=== PATIENT | female | born 1970 | race Caucasian/White ===

== ENCOUNTER 2021-12-11 15:34 | Outpatient (REF) | payer BC, SELFPAY | END 2021-12-11 15:35 | disposition home or self-care (01) | LOC: HO.BBR 15:34 | PROVIDERS: Visit Provider Internal Medicine Hematology | DX: Z13.89 Encounter for screening for other disorder (principal) ==

== ENCOUNTER 2024-01-29 15:14 | Outpatient (REF) | payer BC, SELFPAY | END 2024-01-29 15:15 | disposition home or self-care (01) | LOC: HO.BBR 15:14 | PROVIDERS: Visit Provider Internal Medicine Hematology | DX: Z13.89 Encounter for screening for other disorder (principal) ==

== ENCOUNTER 2025-05-27 15:03 | Outpatient (REF) | payer BC, SELFPAY ==
--- OUTSIDE RECORDS SUMMARY | 2025-05-27 20:26 | XMS_ITS | Clinical Summary ---
Author Organization [facility] Address [address] [facility] [address] [place] [address] Phone Care Team Providers Care Wholesale Buyer Name Role Phone Adarsh Parks MD Primary Care Provider [phone] Tia Belle MD Unavailable [phone] Adarsh Parks MD Unavailable [phone] Allergies No known active allergies Medications nitrofurantoin (MACROBID) 100 MG capsule Take 1 capsule (100 mg total) by mouth 2 (two) times a day. 10 capsule 01/15/2025 Active Active Problems Problem Noted Date Diagnosed Date Class 1 obesity due to exces s calories without serious comorbidity with body mass index (BMI) of 33.0 to 33.9 in adult 10/06/2024 Screening for cervical cancer 09/06/2022 Assessment & Plan (09/06/2022 8:56 AM EST): Breast exam, pap and bimanual exam completed in office today. Patient tolerated exam well. Advised we would call with results when available. Further screening dependent on results of pap test. Pt verbalized understanding. We discussed options for lubrication in post menopausal state. Patient has mammogram scheduled in the next few weeks. Advised pt to call with any questions or concerns. 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 Hereditary hemochromatosis 10/16/2017 Hiatal hernia 10/16/2017 Postmenopause 10/16/2017 Immunizations Immunization Administration Dates Next Due INFLUENZA, SPLIT VIRUS, TRIVALENT PF 04/16/2017, 05/07/2016 INFLUENZA, SPLIT VIRUS, TRIV ALENT W/ PRESERVATIVE IM 04/19/2015,04/20/2014,05/27/2013,2010 Influenza Quadrivalent Prese rvative Free IM 05/10/2022,04/18/2021,04/15/2018 Influenza Quadrivalent w/ Preservative IM 06/16/2019 Influenza, Unspecified Formulation 06/11/2012 Tdap 09/23/2013 Family History Medical History Relation Comments Hypertension Father Breast cancer Maternal Aunt Relation Status Comments Father Alive Maternal Aunt Social History Tobacco Use Types Packs/Day Years Used Date Smoking Tobacco: Never Smokeless Tobacco: Never Tobacco Cessation:Counseling Given: Not Answered Alcohol Use Standard Drinks/Week Comments Yes 0 (1 standard drink = 0.6 oz pur e alcohol) 1 Child or Family Care Answer Date Record ed Do you have problems with on e of the following making it difficult for you to work, study, or receive health care? No 10/05/2024 Education Answer Date Recorded Are you interested in help w ith more adult education (for example, completing high school, GED, job training, learning the Greek language, technical skills, or developing parenting skills)? No 10/05/2024 Are you concerned about learning? Not on file 10/05/2024 No 10/05/2024 Yes 10/05/2024 Food Answer Date Recorded Within the past 6 months we worried whether our food would run out before we got money to buy more. Never True 10/05/2024 Within the past 6 months the food we bought just didn't last and we didn't have enough money to get more. Never True Residential Stability Answer Date Recor ded What is your housing situation today? I have papito sing 10/05/2024 How many times have you move d in the past 12 months? Zero (I did not move) 10/05/2024 Paying for Meds Answer Date Recorded Do you have trouble paying for medicines? No 10/05/2024 Paying Utility Bills Answer Date Record ed Do you have trouble paying your heating or elect ricity bill? No 10/05/2024 Transportation Answer Date Recorded Has the lack of transportati on kept you from medical appointments or from getting medications? No 10/05/2024 Unemployment Answer Date Recorded Are you currently unemployed or working on a part-time or temporary basis, and looking for work? No 09/04/2022 Digital Access Answer Date Recorded No 10/05/2024 Yes 10/05/2024 Do you have reliable internet access at home? Ye s 10/05/2024 Do you have a device (e.g., phone, tablet, computer) with a working camera? Yes 10/05/2024 Intimate Partner Violence Answer Date R ecorded Denied Basic Needs Not on file 10/05/2024 In the past 12 months have y ou been in a relationship with a person who hurts, threatens, or tries to control you? No 10/05/2024 Worried food would run out Not on file 10/05 In the past 12 months have y ou been in a relationship with a person who hurts, threatens, or tries to control you? No 10/05/2024 Comments No Sex and Gender Information Value Date Recorded Sex Assigned at Not on file Legal Sex Female 9:34 PM EDT Gender Identity Not on file Sexual Orientation Not on file Last Filed Vital Signs Vital Sign Reading Time Taken Comments Blood Pressure 118/70 01/15/2025 11:37 AM EDT Pulse 97 01/15/2025 11:37 AM EDT Temperature 36.3 C (97.3 F) 01/15/2025 11:37 AM EDT Respiratory Rate 18 05/22/2024 4:41 PM EST Oxygen Saturation 98% 01/15/2025 11:37 AM EDT Inhaled Oxygen Concentration - - Weight 92.4 kg (203 lb 9.6 oz) 01/15/2025 11:37 AM EDT Height 168.4 cm (5' 6.3 ) 01/15/2025 11:37 AM ED T Body Mass Index 32.57 01/15/2025 11:37 AM EDT Plan of Treatment Health Maintenance Due Date Last Done Comments COLOGUARD 12/15/2015 FIT TEST 12/15/2015 FOBT 12/15/2015 SIGMOIDOSCOPY 12/15/2015 VIRTUAL COLONOSCOPY 12/15/2015 PNEUMOCOCCAL VACCINES (50+ years) (1 of 1 - PCV) 2020 Adult Td,Tdap Booster 09/24/2023 09/23/2013 INFLUENZA VACCINE (#1) 2025 , 04/18/2021, 06/16/2019, Additional history exists COVID-19 VACCINE (3 - 2024- season) 2025 10/13/2020, 09/22/2020 DEPRESSION SCREENING 10/05/2025 10/05/2024 MAMMOGRAM 04/22/2026 04/22/2024, 09/06, 09/15/2020, Additional history exists ZOSTER VACCINES (1 of 2) 06/13/2026 Pos tponed from 2020 (Not Clinically Appropriate) PAP SMEAR 09/07/2027 09/06/2022, 02/2016, 01/13/2016, Additional history exists SCREENING FOR DIABETES 10/08/2027 10/07/2024 LIPID PANEL 10/07/2029 10/07/2024, 05/10, 06/06/2020 COLONOSCOPY 10/24/2031 10/23/2021 COLORECTAL CANCER SCREENING 10/24/2031 RSV VACCINE (1 - 1-dose 75+ series) 2045 HIV ONE-TIME SCREENING (18-65 YEARS) Completed 06/06/2020 HEPATITIS C SCREENING Completed 09/06/2022, 023 SMOKING STATUS SCREENING (Once After 26 Yrs) Completed 01/15/2025 HEPATITIS A VACCINES Aged Out No long er eligible based on patient's age to complete this topic HIB VACCINES Aged Out No longer eligi ble based on patient's age to complete this topic MENINGOCOCCAL VACCINES (ACWY) Aged Out No longer eligible based on patient's age to complete this topic MENINGOCOCCAL VACCINES (B) Aged Out N o longer eligible based on patient's age to complete this topic Medical Devices Not on file Procedures Procedure Name Priority Date/Time Associated Diagnosis Comments LIPID PANEL Routine 10/07/2024 8:38 AM EDT Annual physical exam BI MAMMOGRAM SCREENING WITH TOMOSYNTHESIS WITH CAD (BILATERAL) Routine 04/22/2024 7:54 AM EDT Breast screening HEPATITIS C ANTIBODY, QUALITATIVE Routine 09/06/2022 8:55 AM EST Need for hepatitis C screening test PAP TEST Routine 09/06/2022 12:00 AM EST ENDOSCOPY, COLON 10/23/2021 11:4 4 AM EDT from Last 3 Months or Most Recently Relevant to Health Maintenance Results * (ABNORMAL) Lipid panel (10/07/2024 8:38 AM EDT) HDL 72 mg/dL [facility] Comment: Interpretation <40 mg/dL: Low HDL cholesterol (major risk factor for CHD) Greater than or equal to 60 mg/dL: High HDL cholesterol ( negative risk factor for CHD) HDL - cholesterol is affected by a number of factors, e.g. smoking, excerise, hormones, sex and age. CHOLESTEROL 208 0 - 240 mg/dL [facility] TRIGLYCERIDES 104 30 - 160 mg/dL [facility] LDL 115 50 - 129 mg/dL [facility] Comment: LDL levels in terms of risk for coronary heart disease: <100 mg/dL: Optimal 100-129 mg/dL: Near or above optimal 130-159 mg/dL: Borderline high 160-189 mg/dL: High >190 mg/dL: Very High CARDIAC RISK RATIO 2.9(L) 3.3 - 4.4 C [facility] Blood 10/07/2024 8:38 AM EDT 10/07/2024 8:55 AM EDT us Adarsh Parks MD LAB BLOOD BKR ORDERABLES F inal Result [address] [id number] * BI MAMMOGRAM SCREENING WITH TOMOSYNTHESIS WITH CAD (BILATERAL) (04/22/2024 7:54 AM EDT) Anatomical Region Laterality Modality Breast Left, Breast Right, Breast Bilateral Bila teral Mammography 04/22/2024 1:32 PM EDT Impressions 04/22/2024 1:34 PM EDT No mammographic evidence of malignancy in either breast. Annual screening mammography is recommended. BI-RADS 2 BENIGN The patient will be notified of the results and recommendations. Narrative 04/22/2024 1:34 PM EDT BI MAMMOGRAM SCREENING WITH TOMOSYNTHESIS WITH CAD (BILATERAL) Additional patient information: Screening. COMPARISON: Comparison is made with relevant prior imaging. Breast composition: There are scattered areas of fibroglandular density. FINDINGS: Benign mass in the left breast. No abnormal masses, suspicious calcifications, or other significant findings are identified mammographically in either breast. Procedure Note Katerin Hoang MD - 04/22/2024 BI MAMMOGRAM SCREENING WITH TOMOSYNTHESIS WITH CAD (BILATERAL) Additional patient information: Screening. COMPARISON: Comparison is made with relevant prior imaging. Breast composition: There are scattered areas of fibroglandular density. FINDINGS: Benign mass in the left breast. No abnormal masses, suspicious calcifications, or other significantfindings are identified mammographically in either breast. IMPRESSION: No mammographic evidence of malignancy in either breast. Annual screening mammography is recommended. BI-RADS 2 BENIGN The patient will be notified of the results and recommendations. Adarsh Parks MD IMG MG EXAMS Final Resu lt * Hepatitis C antibody, qualitative (09/06/2022 8:55 AM EST) HCV NON-REACTIV E NON-REACTI VE [facility] Blood 09/06/2022 8:55 AM EST 09/06/2022 11:29 AM EST Adarsh Parks MD LAB BLOOD BKR ORDERABLES F inal Result [facility] [address] [place] [address] * Pap Test (09/06/2022 12:00 AM EST) 09/06/2022 09/07/2022 9:4 7 AM EST Narrative SEE NARRATIVE - 09/12/2022 2:06 PM EST [address] [address] Underwear Welter: Debbie Galvez MD CHILD GUIDANCE COUNSELOR Cytology Report FINAL DIAGNOSIS A. PAP SMEAR (SUREPATH) CE: SPECIMEN ADEQUACY: Satisfactory for evaluation; transformation zone present. INTERPRETATION: NEGATIVE FOR INTRAEPITHELIAL LESION OR MALIGNANCY. Electronically Signed Out By: SALUD Howell(ASCP) The Pap test is a screening test primarily for squamous cancers and precursors and has associated false-negative and false-positive results. New technologies such as liquid-based preparations may decrease but will not eliminate all false-negative results. Regular sampling and follow-up of unexplained clinical signs and symptoms are recommended to minimize false negative results. PROCEDURES/ADDENDA HPV Testing (Requested) Ordered Date: 09/07/2022 A. PAP SMEAR (SUREPATH) CE: Human Papilloma Virus Test NEGATIVE for high-risk Human Papilloma Virus types 16, 18, 45 and the Other high risk probe set (Includes 31, 33, 35, 39, 51, 52, 56, 58, 59, 66, 68) Note: Testing performed by [employer] Onclarity HR-HPV analysis. Clinical correlation is advised. This HPV test was performed at [facility], [address] [place] [address]. This test has been FDA approved for [employer] cervical cytology specimens. The accuracy and precision of this test for all other specimen sources has been verified in the Cytopathology Laboratory of the [facility] and has not been cleared or approved by the U.S. Food and Drug Administration. Clinical correlation is advised. CLINICAL HISTORY Date of Last Menstrual Period: Not Provided Menstrual History: Post Menopausal Other Clinical Conditions: Screening Pap SPECIMEN SOURCE A: PAP SMEAR (SUREPATH) CE Patient Name: DEBBIE GAMING : 1970 (Age: 51) Sex: F Institution: [facility] Location: [facility] Date of Collection: 09/06/2022 Date of Reported: 09/12/2022 14:06 Results to: [employer] TECHNICIAN-C [employer] [facility] CYTOLOGY ORDERABLES Final Result SEE NARRATIVE * ENDOSCOPY, COLON (10/23/2021 11:44 AM EDT) Narrative Transcriptions Owen Powers MD - 10/23/2021 11:44 AM EDT Patient Name: Debbie Mekhi Attending MD:: OWEN POWERS MD Procedure Date: 10/23/2021 11:44 AM Date of : 1970 Age: 50 Admit Type: Outpatient Gender: Female Room: [place] [address] Referring MD: ADARSH PARKS MD Exam Type: Colonoscopy Indications: Screening for colorectal malignant neoplasm, Thisis the patient's first colonoscopy Medications: Monitored Anesthesia Care Procedure: Informed consent was obtained from the patientafter discussion of the indications, limitations, alternatives, benefits, and risks of the procedure. Risks specifically discussed include but are not limited to medication reactions, missed lesions, bleeding, perforation, or the need for emergent surgery. Throughout the procedure, the patient's blood pressure, pulse, end-tidal CO2, and oxygensaturations were monitored continuously. The Olympus pediatric variable colonoscopePCF-[id number] #3 was introduced through the anus and advanced tothe terminal ileum, with identification of theappendiceal orifice and IC valve. The colonoscopy was somewhat difficult. The patient tolerated the procedurefairly well. The quality of the bowel preparation wasgood. The terminal ileum, ileocecal valve, appendiceal orifice, and rectum were photographed. Complications: No immediate complications. Estimated blood loss:None. Findings: The perianal and digital rectal examinations were normal. Pertinent negatives include normalsphincter tone. The terminal ileum appeared normal. Retroflexion in the right colon was performed. The exam was otherwise without abnormality ondirect and retroflexion views. Impression: - The examined portion of the ileum was normal. - The examination was otherwise normal on directand retroflexion views. - No specimens collected. Recommendation: - Discharge patient to home. - Repeat colonoscopy in 10 years for screening purposes. OWEN POWERS MD 10/23/2021 12:30:49 PM This report has been signed electronically. Number of Addenda: 0 Note Initiated On: 10/23/2021 11:44 AM Procedure Code(s): --- Professional --- 68694, Colonoscopy, flexible; diagnostic, including collection of specimen(s) by brushing or washing, when performed (separateprocedure) --- Technical --- 79635, Colonoscopy, flexible; diagnostic, including collection of specimen(s) by brushing or washing, when performed (separateprocedure) Diagnosis Code(s): --- Professional --- Z12.11, Encounter for screening for malignantneoplasm of colon --- Technical --- Z12.11, Encounter for screening for malignantneoplasm of colon CPT copyright 2020 [employer]. All rights reserved. The codes documented in this report are preliminary and upon coin machine servicer repairer reviewmay be revised to meet current compliance requirements. Procedure Date: 10/23/2021 11:44:[address] [place] [address] Adarsh Parks MD GI PROCEDURE ORDERABLES Fi nal Result from Last 3 Months or Most Recently Relevant to Health Maintenance [place] [address] [place] [address] [place] [address] [place] [address] Care Teams Wholesale Buyer Relationship Specialty Start Date End Date Adarsh Parks MD [address] [facility] [place] [address] [email or web address] PCP - General 04/25/17 iTa Belle MD [address] [place] [address], [address] [place] [address] Obstetrics and Gynecology 10/12/19 Adarsh Parks MD [address] [place] [address], [address] [place] [address] [email or web address] Insurance Assigned Provider 01/16/25 Additional Source Comments The information contained in this document represents components of the legal health record. It is not the complete legal health record.[facility]
--- OUTSIDE RECORDS SUMMARY | 2025-05-27 20:27 | XMS_ITS | Encounter Summary ---
Author Organization [facility] Address [address] [facility] [address] [place] [address] Phone Care Team Providers Care Shale Miner Name Role Phone Adarsh Parks MD Primary Care Provider [phone] Tia Belle MD Unavailable [phone] Adarsh Parks MD Unavailable [phone] Adarsh Parks MD Unavailable [phone] Adarsh Parks MD Unavailable [phone] Encounter Details Date Type Department Care Team (Late st Contact Info) Description 09/07/2020 Ancillary Orders [facility] Medical [facility] Medicine [address] [place] [address] Adarsh Parks MD [address] [facility] [place] [address] [email or web address] Breast screening Social History Tobacco Use Types Packs/Day Years Used Date Smoking Tobacco: Never Smokeless Tobacco: Never Alcohol Use Standard Drinks/Week Comments Yes 0 (1 standard drink = 0.6 oz pur e alcohol) 1 Comments No Sex and Gender Information Value Date Recorded Sex Assigned at Not on file Legal Sex Female 9:34 PM EDT Gender Identity Not on file Sexual Orientation Not on file documented as of this encounter Plan of Treatment Not on file documented as of this encounter Results * BI MAMMOGRAM SCREENING WITH TOMOSYNTHESIS WITH CAD (BILATERAL) (09/15/2020 2:47 PM EST) Anatomical Region Laterality Modality Breast Left, Breast Right, Breast Bilateral Bila teral Mammography 09/15/2020 3:47 PM EST Impressions 09/15/2020 3:50 PM EST BILATERAL BREASTS: Negative, no evidence of malignancy. Normal interval follow- up is recommended in 12 months. Bi-RADS: BI-RADS CATEGORY: 1 - Negative. DENSITY: There are scattered fibroglandular densities. Narrative 09/15/2020 3:50 PM EST STUDY: Bilateral screening mammography with tomosynthesis and CAD TECHNIQUE: Bilateral full-field digital screening mammography is obtained and read in conjunction with computer-aided detection. Tomosynthesis as well as 2-D C view imaging were obtained. COMPARISON: Comparison made to multiple prior, most recent May 18, 2019, and most remote 2011. BREAST COMPOSITION: There are scattered areas of fibroglandular density BILATERAL BREASTS: No significant masses, suspicious calcifications or other abnormalities are seen. Procedure Note Vivian Guajardo MD - 09/15/2020 STUDY: Bilateral screening mammography with tomosynthesis and CAD TECHNIQUE: Bilateral full-field digital screening mammography is obtainedand read in conjunction with computer-aided detection. Tomosynthesis aswell as 2-D C view imaging were obtained. COMPARISON: Comparison made to multiple prior, most recent May, and most remote 2011. BREAST COMPOSITION: There are scattered areas of fibroglandulardensity BILATERAL BREASTS: No significant masses, suspicious calcifications orother abnormalities are seen. IMPRESSION: BILATERAL BREASTS: Negative, no evidence of malignancy. Normal intervalfollow-up is recommended in 12 months. Bi-RADS: BI-RADS CATEGORY: 1 - Negative. DENSITY: There are scattered fibroglandular densities. Adarsh Parks MD IMG MG EXAMS Final Resu lt documented in this encounter Visit Diagnoses Diagnosis Breast screening Breast screening, unspecified Breast screening Breast screening, unspecified documented in this encounter Additional Health Concerns Assessment Noted Time PHQ-2 Depression Total Score: 0 06/01/20 11:16 AM EST documented as of this encounter Care Teams Shale Miner Relationship Specialty Start Date End Date Adarsh Parks MD [address] [place] [address], [address] [place] [address] PCP - General 04/25/17 Tia Belle MD [address] [place] [address], [address] [place] [address] Obstetrics and Gynecology 10/12/19 Adarsh Parks MD [address] [place] [address], [address] [place] [address] Insurance Assigned Provider 09/10/20 08/11/22 Adarsh Parks MD [address] [place] [address], [address] [place] [address] Insurance Assigned Provider 10/12/23 11/14/24 Adarsh Parks MD [address] [place] [address], [address] [place] [address] Insurance Assigned Provider 01/16/25 documented as of this encounter Additional Source Comments The information contained in this document represents components of the legal health record. It is not the complete legal health record.[facility]
--- OUTSIDE RECORDS SUMMARY | 2025-05-27 20:27 | XMS_ITS | Encounter Summary ---
Author Organization [facility] Address [address] [facility] [address] [place] [address] Phone Care Team Providers Care Chili Powder Mixer Name Role Phone Adarsh Parks MD Primary Care Provider + [phone] Adarsh Parks MD Unavailable +[phone] Kanwal Gómez NP Unavailable Coy Berry MD Unavailable [phone] Tia Belle MD Unavailable + [phone] Tia Belle MD Unavailable + [phone] Adarsh Parks MD Unavailable +[phone] Adarsh Parks MD Unavailable +[phone] Adarsh Parks MD Unavailable +[phone] Encounter Details Date Type Department Care Team (Late st Contact Info) Description 05/04/2019 Ancillary Orders Virtual Department 30 [place] [address] Adarsh Parks MD 22 [facility], [address] [place] [address] [email or web address] Breast screening Social History Tobacco Use Types [...] MAMMOGRAM SCREENING WITH TOMOSYNTHESIS WITH CAD (BILATERAL) (05/18/2019 3:54 PM EST) Anatomical Region Laterality Modality Breast Left, Breast Right, Breast Bilateral Bila teral Mammography 05/18/2019 8:52 PM EST Impressions 05/18/2019 8:56 PM EST BILATERAL BREASTS: Negative, no evidence of malignancy. Normal interval follow- up is recommended in 12 months. Bi-RADS: BI-RADS CATEGORY: 1 - Negative. DENSITY: There are scattered fibroglandular densities. POS - CDHMAMA Narrative 05/18/2019 8:56 PM EST STUDY: Bilateral screening mammography with tomosynthesis and CAD TECHNIQUE: Bilateral full-field digital screening mammography is obtained and read in conjunction with computer-aided detection. Tomosynthesis as well as 2-D C view imaging were obtained. COMPARISON: Comparison made to multiple prior, most recent February 11, 2018, and most remote 2011. BREAST COMPOSITION: There are scattered areas of fibroglandular density BILATERAL BREASTS: No significant masses, calcifications or other abnormalities are seen. Procedure Note Vivian Guajardo MD - 05/18/2019 STUDY: Bilateral screening mammography with tomosynthesis and CAD TECHNIQUE: Bilateral full-field digital screening mammography is obtainedand read in conjunction with computer-aided detection. Tomosynthesis aswell as 2-D C view imaging were obtained. COMPARISON: Comparison made to multiple prior, most recent February 11, 2018,and most remote 2011. BREAST COMPOSITION: There are scattered areas of fibroglandulardensity BILATERAL BREASTS: No significant masses, calcifications or otherabnormalities are seen. IMPRESSION: BILATERAL BREASTS: Negative, no evidence of malignancy. Normal intervalfollow-up is recommended in 12 months. Bi-RADS: BI-RADS CATEGORY: 1 - Negative. DENSITY: There are scattered fibroglandular densities. POS - CDHMAMA Adarsh Parks MD IMG MG EXAMS Final Resu lt documented in this encounter Visit Diagnoses Diagnosis Breast screening Breast screening, unspecified Breast screening Breast screening, unspecified documented in this encounter Care Teams Chili Powder Mixer Relationship Specialty Start Date End Date Adarsh Parks MD [address] [place] [address], [address] [place] [address] [email or web address] PCP - General 04/25/17 Adarsh Parks MD [address] [place] [address], [address] [place] [address] Historical LMR Provider 04/28/17 10/11/19 Kanwal Gómez NP [address] [place] [address] 2_[place] [address] [email or web address] Historical LMR Provider 04/28/17 10/11/19 Coy Berry MD [address] [place] [address] [email or web address] Historical LMR Provider 04/28/17 0 Tia Belle MD [address] [place], [place] Historical LMR Provider 04/28/17 0 Tia Belle MD [address] [place], [place] Obstetrics and Gynecology 10/12/19 Adarsh Parks MD [address] [place] [address], [address] [place] [address] Insurance Assigned Provider 09/10/20 08/11/22 Adarsh Parks MD [address] [place] [address], [address] [place] [address] Insurance Assigned Provider 10/12/23 11/14/24 Adarsh Parks MD [address] [place] [address], [address] [place] [address] Insurance Assigned Provider 01/16/25 documented as of this encounter Additional Source Comments The information contained in this document represents components of the legal health record. It is not the complete legal health record.[facility]
--- OUTSIDE RECORDS SUMMARY | 2025-05-27 20:27 | XMS_ITS | Encounter Summary ---
Author Organization [facility] Address [address] [facility] [address] [place] [address] Phone Care Team Providers Care Hide Buffer Name Role Phone Adrash Parks MD Primary Care Provider [phone] Tia Belle MD Unavailable [phone] Adarsh Parks MD Unavailable [phone] Adarsh Parks MD Unavailable [phone] Adarsh Parks MD Unavailable [phone] Encounter Details Date Type Department Care Team (Latest Contact Info) Description 05/30/2022 Transcribe Orders Virtual Department 30 [place] [address] Adarsh Parks MD 22 [facility], [address] [place] [address] [email or web address] Breast screening (Primary Dx) Social History Tobacco Use Types Packs/Day Years [...] MAMMOGRAM SCREENING WITH TOMOSYNTHESIS WITH CAD (BILATERAL) (09/24/2022 3:22 PM EDT) Anatomical Region Laterality Modality Breast Left, Breast Right, Breast Bilateral Bila teral Mammography 09/25/2022 2:10 PM EDT Impressions 09/25/2022 3:20 PM EDT No mammographic signs of malignancy. Annual screening is recommended. BI-RADS CATEGORY: 2 - Benign finding. DENSITY: There are scattered fibroglandular densities. Narrative 09/25/2022 3:20 PM EDT Bilateral mammography is performed in conjunction with computed aided detection. 3-D tomography along with 2-D C view imaging was also performed. Comparison made to previous dated as far back as 01/10/2007 and as recent as 09/15/2020. A bilobed circumscribed mass in the mid one third of the slight outer left breast has waxed and waned over the years and likely represents a cyst. No suspicious masses, areas of architectural distortion or suspicious microcalcifications. Procedure Note Rafa Mckeon MD - 09/25/2022 Bilateral mammography is performed in conjunction with computed aideddetection. 3-D tomography along with 2-D C view imaging was alsoperformed. Comparison made to previous dated as far back as 01/10/2007 andas recent as 09/15/2020. A bilobed circumscribed mass in the mid one third of the slight outer leftbreast has waxed and waned over the years and likely represents a cyst. Nosuspicious masses, areas of architectural distortion or suspiciousmicrocalcifications. IMPRESSION: No mammographic signs of malignancy. Annual screening is recommended. BI-RADS CATEGORY: 2 - Benign finding. DENSITY: There are scattered fibroglandular densities. Adarsh Parks MD IMG MG EXAMS Final Resu lt documented in this encounter Visit Diagnoses Diagnosis Breast screening- Primary Breast screening, unspecified Breast screening Breast screening, unspecified documented in this encounter Additional Health Concerns Assessment Noted Time PHQ-2 Depression Total Score: 0 06/01/20 11:16 AM EST documented as of this encounter Care Teams Hide Buffer Relationship Specialty Start Date End Date Adarsh Parks MD [address] [place] [address], [address] [place] [address] PCP - General 04/25/17 Tia Belle MD [address] [place] [address], [address] [place] [address] Obstetrics and Gynecology 10/12/19 Adarsh Parks MD [address] [place] [address], [address] [place] [address] Insurance Assigned Provider 09/10/20 08/11/22 Adarsh Parks MD [address] [place] [address], [address] [place] [address] Insurance Assigned Provider 10/12/23 11/14/24 Adarsh Parks MD [address] [place] [address], [address] [place] [address] Insurance Assigned Provider 01/16/25 documented as of this encounter Additional Source Comments The information contained in this document represents components of the legal health record. It is not the complete legal health record.[facility]
--- OUTSIDE RECORDS SUMMARY | 2025-05-27 20:27 | XMS_ITS | Encounter Summary ---
Author Organization [facility] Address [address] [facility] [address] [place] [address] Phone Care Team Providers Care Plastic Block Boiler Reliner Name Role Phone Adarsh Parks MD Primary Care Provider [phone] Tia Belle MD Unavailable [phone] Adarsh Parks MD Unavailable [phone] Adarsh Parks MD Unavailable Encounter Details Date Type Department Care Team (Late st Contact Info) Description 02/28/2024 Procedure Pass [facility], [address] [address] Social History Tobacco Use Types Packs/Day Years Used Date Smoking Tobacco: Never Smokeless Tobacco: Never Alcohol Use Standard Drinks/Week Comments Yes 0 (1 standard drink = 0.6 oz pur e alcohol) 1 Child or Family Care Answer Date Record ed Do you have problems with on e of the following making it difficult for you to work, study, or receive health care? No 09/04/2022 Education Answer Date Recorded Are you interested in help w ith more adult education (for example, completing high school, GED, job training, learning the Fijian language, technical skills, or developing parenting skills)? No 09/04/2022 Food Answer Date Recorded Within the past 6 months we worried whether our food would run out before we got money to buy more. Never True 09/04/2022 Within the past 6 months the food we bought just didn't last and we didn't have enough money to get more. Never True Residential Stability Answer Date Recor ded What is your housing situation today? I have papito brannon 09/04/2022 How many times have you move d in the past 12 months? Zero (I did not move) 09/04/2022 Paying for Meds Answer Date Recorded Do you have trouble paying for medicines? No 09/04/2022 Paying Utility Bills Answer Date Record ed Do you have trouble paying your heating or elect ricity bill? No 09/04/2022 Transportation Answer Date Recorded Has the lack of transportati on kept you from medical appointments or from getting medications? No 09/04/2022 Unemployment Answer Date Recorded Are you currently unemployed or working on a part-time or temporary basis, and looking for work? No 09/04/2022 Digital Access Answer Date Recorded No 12/03/2022 No 12/03/2022 Reliable internet access at home? Not on file 12/03/2022 Device with a working camera? Not on file Intimate Partner Violence Answer Date R ecorded Denied Basic Needs Not on file 09/04/2022 In the past 12 months have y ou been in a relationship with a person who hurts, threatens, or tries to control you? No 09/04/2022 Worried food would run out Not on file 09/04 In the past 12 months have y ou been in a relationship with a person who hurts, threatens, or tries to control you? No 09/04/2022 Comments No Sex and Gender Information Value Date Recorded Sex Assigned at Not on file Legal Sex Female 9:34 PM EDT Gender Identity Not on file Sexual Orientation Not on file documented as of this encounter Plan of Treatment Not on file documented as of this encounter Visit Diagnoses Not on filedocumented in this encounter Additional Health Concerns Assessment Noted Time PHQ-2 Depression Total Score: 0 09/04/19 23 2:04 PM EST documented as of this encounter Care Teams Plastic Block Boiler Reliner Relationship Specialty Start Date End Date Adarsh Parks MD [address] [place] [address], [address] [place] [address] [email or web address] PCP - General 04/25/17 Tia Belle MD 22 [facility], [address] [place] [address] Obstetrics and Gynecology 10/12/19 Adarsh Parks MD [address] [place] [address], [address] [place] [address] [email or web address] Insurance Assigned Provider 10/12/23 11/14/24 Adarsh Parks MD [address] [place] [address], [address] [place] [address] [email or web address] Insurance Assigned Provider 01/16/25 documented as of this encounter Additional Source Comments The information contained in this document represents components of the legal health record. It is not the complete legal health record.[facility]
--- OUTSIDE RECORDS SUMMARY | 2025-05-27 20:27 | XMS_ITS | Encounter Summary ---
Author Organization [facility] Address [address] [facility] [address] [place] [address] Phone Care Team Providers Care Braided Rug Maker Name Role Phone Adarsh Parks MD Primary Care Provider [phone] Tia Belle MD Unavailable [phone] Adarsh Parks MD Unavailable [phone] Adarsh Parks MD Unavailable [phone] Encounter Details Date Type Department Care Team (Latest Contact Info) Description 02/28/2024 Transcribe Orders Virtual Department 30 [place] [address] Adarsh Parks MD 22 [facility], [address] [place] [address] [email or web address] Breast screening (Primary Dx) Social History [...] high school, GED, job training, learning the Macanese language, technical skills, or developing parenting skills)? [...] housing situation today? I have papito sing 09/04/2022 How many times have you move [...] documented as of this encounter Care Teams Braided Rug Maker Relationship Specialty Start Date End Date Adarsh Parks MD [address] [place] [address], [address] [place] [address] PCP - General 04/25/17 Tia Belle MD [address] [place] [address], [address] [place] [address] Obstetrics and Gynecology 10/12/19 Adarsh Parks MD [address] [place] [address], [address] [place] [address] [email or web address] Insurance Assigned Provider 10/12/23 11/14/24 Adarsh Parks MD [address] [place] [address], [address] [place] [address] [email or web address] Insurance Assigned Provider 01/16/25 documented as of this encounter Additional Source Comments The information contained in this document represents components of the legal health record. It is not the complete legal health record.[facility]
--- OUTSIDE RECORDS SUMMARY | 2025-05-27 20:27 | XMS_ITS | Encounter Summary ---
Author Organization [facility] Address [address] [facility] [address] [place] [address] Phone Care Team Providers Care Electrical Controls Technician Name Role Phone Adarsh Parks MD Primary Care Provider + [phone] Adarsh Parks MD Unavailable [phone] Kanwal Gómez NP Unavailable [phone] Coy Berry MD Unavailable [phone] Tia Belle MD Unavailable + [phone] Tia Belle MD Unavailable + [phone] Adarsh Parks MD Unavailable [phone] Adarsh Parks MD Unavailable +[phone] Adarsh Parks MD Unavailable [phone] Encounter Details Date Type Department Care Team (Late st Contact Info) Description 05/04/2019 Ancillary Orders [facility] Medicine [address] [place] [address] Adarsh Parks MD 22 [facility], [address] [place], [place] [id number] [email or web address] Social History Tobacco Use Types Packs/Day Years [...] Diagnoses Not on filedocumented in this encounter Care Teams Electrical Controls Technician Relationship Specialty Start Date End Date Adarsh Parks MD [address] [place] [address], [address] [place] [address] [email or web address] PCP - General 04/25/17 Adarsh Parks MD [address] [place] [address], [address] [place] [address] [email or web address] Historical LMR Provider 04/28/17 10/11/19 Kanwal Gómez NP [address] [place] [address]_[place] [address] [email or web address] Historical LMR Provider 04/28/17 10/11/19 Coy Berry MD [address] [place] [address] [email or web address] Historical LMR Provider 04/28/17 0 Tia Belle MD [address] [place], [place] Historical LMR Provider 04/28/17 0 Tia Belle MD [address] [place], [place] Obstetrics and Gynecology 10/12/19 Adarsh Parks MD [address] [place] [address], [address] [place] [address] Insurance Assigned Provider 09/10/20 08/11/22 Adarsh Parks MD [address] [place] [address], [address] [place] [address] Insurance Assigned Provider 10/12/23 11/14/24 Adarsh Parks MD [address] [place] [address], [address] [place] [address] Insurance Assigned Provider 01/16/25 documented as of this encounter Additional Source Comments The information contained in this document represents components of the legal health record. It is not the complete legal health record.[facility]
--- OUTSIDE RECORDS SUMMARY | 2025-05-27 20:27 | XMS_ITS | Encounter Summary ---
Author Organization [facility] [place] [facility] Address [address] [facility] [address] [place] [address] Phone Care Team Providers Care Waist Presser Name Role Phone Adarsh Parks MD Primary Care Provider +- [phone] Tia Belle MD Unavailable +- [phone] Adarsh Parks MD Unavailable [phone] Adarsh Parks MD Unavailable [phone] Adarsh Parks MD Unavailable [phone] Encounter Details Date Type Department Care Team (Late st Contact Info) Description 10/23/2021 Procedure Pass [facility] Admitting Dept Virtual Department [address] [place] [address] Social History Tobacco Use Types Packs/Day Years [...] Time PHQ-2 Depression Total Score: 0 06/01/20 20 11:16 AM EST documented as of this encounter Care Teams Waist Presser Relationship Specialty Start Date End Date Adarsh Parks MD [address] [place] [address] [address] [place] [address] PCP - General 04/25/17 Tia Belle MD [address] [place] [address], [address] [place] [address] Obstetrics and Gynecology 10/12/19 Adarsh Parks MD [address] [place] [address], [address] [place] [address] Insurance Assigned Provider 09/10/20 08/11/22 Adarsh Parks MD [address] [place] [address], [address] [place] [address] Insurance Assigned Provider 10/12/23 11/14/24 Adarsh Parks MD [address] [place] [address], [address] [place] [address] Insurance Assigned Provider 01/16/25 documented as of this encounter Additional Source Comments The information contained in this document represents components of the legal health record. It is not the complete legal health record.[facility] [place] [facility]
--- OUTSIDE RECORDS SUMMARY | 2025-05-27 20:27 | XMS_ITS | Encounter Summary ---
Author Organization [facility] Address [address] [place] [address] Phone Care Team Providers Care Legal Officer Name Role Phone Adarsh Parks MD Primary Care Provider [phone] Adarsh Parks MD Unavailable [phone] Kanwal Gómez NP Unavailable [phone] Coy Berry MD Unavailable [phone] Tia Belle MD Unavailable + [phone] Tia Belle MD Unavailable [phone] Adarsh Parks MD Unavailable +[phone] Adarsh Parks MD Unavailable +[phone] Adarsh Parks MD Unavailable +[phone] Encounter Details Date Type Department Care Team (Late st Contact Info) Description 12/15/2018 Ancillary Orders Virtual Department 30 [place] [address] Sites, Felisha Briones MD [address] [place] [address] Social History Tobacco Use Types Packs/Day Years Used Date Smoking Tobacco: Never Assessed Comments No Sex and Gender Information Value Date Recorded Sex Assigned at Not on file Legal Sex Female 9:34 PM EDT Gender Identity Not on file Sexual Orientation Not on file documented as of this encounter Plan of Treatment Not on file documented as of this encounter Visit Diagnoses Not on filedocumented in this encounter Care Teams Legal Officer Relationship Specialty Start Date End Date Adarsh Parks MD [address] [place] [address], [address] [place] [address] [email or web address] PCP - General 04/25/17 Adarsh Parks MD [address] [place] [address], [address] [place] [address] [email or web address] Historical LMR Provider 04/28/17 10/11/19 Kanwal Gómez NP [address] [place] [address] 2_[place] [address] [email or web address] Historical LMR Provider 04/28/17 10/11/19 Coy Berry MD [address] [place] [address] [email or web address] Historical LMR Provider 04/28/17 0 Tia Belle MD [address], [place] Historical LMR Provider 04/28/17 0 Tia Belle MD [address] [place] [address] Obstetrics and Gynecology 10/12/19 Adarsh Parks MD [address] [place] [address], [address] [place] [address] [email or web address] Insurance Assigned Provider 09/10/20 08/11/22 Adarsh Parks MD [address] [place] [address], [address] [place] [address] [email or web address] Insurance Assigned Provider 10/12/23 11/14/24 Adarsh Parks MD [address] [place] [address], [address] [place] [address] [email or web address] Insurance Assigned Provider 01/16/25 documented as of this encounter Additional Source Comments The information contained in this document represents components of the legal health record. It is not the complete legal health record.[facility]
--- OUTSIDE RECORDS SUMMARY | 2025-05-27 20:27 | XMS_ITS | Encounter Summary ---
Author Organization [facility] Address [address] [place] [address] [place] [address] Phone Care Team Providers Care Briar Shop Supervisor Name Role Phone Adarsh Parks MD Primary Care Provider +- [phone] Tia Belle MD Unavailable +- [phone] Adarsh Parks MD Unavailable [phone] Adarsh Parks MD Unavailable [phone] Adarsh Parks MD Unavailable [phone] Encounter Details Date Type Department Care Team (Late st Contact Info) Description 05/30/2022 Procedure Pass [address] [address] Social History Tobacco Use Types Packs/Day Years [...] documented as of this encounter Care Teams Briar Shop Supervisor Relationship Specialty Start Date End Date Adarsh Parks MD [address] [place] [address], [address] [place] [address] PCP - General 04/25/17 Tia Belle MD [address] [place] [address], [address] [place] [address] Obstetrics and Gynecology 10/12/19 Adarsh Parks MD [address] [place] [address], [address] [place] [address] Insurance Assigned Provider 09/10/20 08/11/22 Adarsh Parks MD [address] [place] [address], [address] [place] [address] Insurance Assigned Provider 10/12/23 11/14/24 Adarsh Parks MD [address] [place] [address], [address] [place] [address] Insurance Assigned Provider 01/16/25 documented as of this encounter Additional Source Comments The information contained in this document represents components of the legal health record. It is not the complete legal health record.[facility]
--- OUTSIDE RECORDS SUMMARY | 2025-05-27 20:27 | XMS_ITS | Encounter Summary ---
Author Organization [facility] Address [address] [place] [address] [place] [address] Phone Care Team Providers Care Operations Scheduler Name Role Phone Adarsh Parks MD Primary Care Provider + [phone] Adarsh Parks MD Unavailable +[phone] Kanwal Gómez NP Unavailable Coy Berry MD Unavailable [phone] Tia Belle MD Unavailable + [phone] Tia Belle MD Unavailable + [phone] Adarsh Parks MD Unavailable +[phone] Adarsh Parks MD Unavailable +[phone] Adarsh Parks MD Unavailable + [phone] Encounter Details Date Type Department Care Team (Late st Contact Info) Description 01/23/2019 Procedure Pass [facility]oscopy Admitting Dept Virtual Department [address] [place] [address] Social History Tobacco Use Types Packs/Day Years [...] on filedocumented in this encounter Care Teams Operations Scheduler Relationship Specialty Start Date End Date Adarsh Parks MD [address] [place] [address], [address] [place] [address] [email or web address] PCP - General 04/25/17 Adarsh Parks MD [address] [place] [address], [address] [place] [address] Historical LMR Provider 04/28/17 10/11/19 Kanwal Gómez NP [address] [place] [address] 2_[place] [address] [email or web address] Historical LMR Provider 04/28/17 10/11/19 Coy Berry MD [address] [place] [id number] [email or web address] Historical LMR Provider 04/28/17 0 Tia Belle MD [address], [place] Historical LMR Provider 04/28/17 0 Tia Belle MD [address], [place] Obstetrics and Gynecology 10/12/19 Adarsh Parks MD [address] [place] [address], [address] [place] [address] [email or web address] Insurance Assigned Provider 09/10/20 08/11/22 Adarsh Parks MD [address] [place] [address], [address] [place] [address] [email or web address] Insurance Assigned Provider 10/12/23 11/14/24 Adarsh Parks MD [address] [place] [address], [address] [place] [address] [email or web address] Insurance Assigned Provider 01/16/25 documented as of this encounter Additional Source Comments The information contained in this document represents components of the legal health record. It is not the complete legal health record.[facility]
--- OUTSIDE RECORDS SUMMARY | 2025-05-27 20:27 | XMS_ITS | Encounter Summary ---
Author Organization [facility] Address [address] [place] [address] [place] [address] Phone Care Team Providers Care Finishing Operator Name Role Phone Adarsh Parks MD Primary Care Provider +- [phone] Tia Belle MD Unavailable +- [phone] Adarsh Parks MD Unavailable [phone] Adarsh Parks MD Unavailable +[phone] Adarsh Parks MD Unavailable [phone] Encounter Details Date Type Department Care Team (Late st Contact Info) Description 09/07/2020 Procedure Pass [address] [address] Social History Tobacco Use Types Packs/Day Years [...] documented as of this encounter Care Teams Finishing Operator Relationship Specialty Start Date End Date Adarsh Parks MD [address] [place] [address], [address] [place] [address] PCP - General 04/25/17 Tia Belle MD [address] [place] [address], [address] [place] [address] Obstetrics and Gynecology 10/12/19 Adarsh Parks MD [address] [place] [address], [address] [place] [address] Insurance Assigned Provider 09/10/20 08/11/22 Adarsh Parks MD [address] [place] [address], [address] [place] [address] Insurance Assigned Provider 10/12/23 11/14/24 Adarsh Parks MD [address] [place] [address], [address] [place] [address] Insurance Assigned Provider 01/16/25 documented as of this encounter Additional Source Comments The information contained in this document represents components of the legal health record. It is not the complete legal health record.[facility]
--- OUTSIDE RECORDS SUMMARY | 2025-05-27 20:27 | XMS_ITS | Encounter Summary ---
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 Name Role Phone Adarsh Parks MD Primary Care Provider + [phone] Adarsh Parks MD Unavailable +[phone] Kanwal Gómez NP Unavailable Coy Berry MD Unavailable [phone] Tia Belle MD Unavailable + [phone] Tia Belle MD Unavailable + [phone] Adarsh Parks MD Unavailable +[phone] Adarsh Parks MD Unavailable +[phone] Adarsh Parks MD Unavailable +[phone] Encounter Details Date Type Department Care Team (Late st Contact Info) Description 05/02/2017 Ancillary Orders [facility] Medicine [address] [place] [address] Adarsh Parks MD [address] [facility], [address] [place], [place] [id number] [email or web address] Breast screening Social History Tobacco Use Types Packs/Day Years Used Date Smoking Tobacco: Never Assessed Comments Unknown Sex and Gender Information Value Date Recorded Sex Assigned at Not on file Legal Sex Female 9:34 PM EDT Gender Identity Not on file Sexual Orientation Not on file documented as of this encounter Plan of Treatment Not on file documented as of this encounter Results * BI MAMMOGRAM SCREENING WITH TOMOSYNTHESIS WITH CAD (BILATERAL) (02/11/2018 1:15 PM EDT) Anatomical Region Laterality Modality Breast Left, Breast Right, Breast Bilateral Bila teral Mammography 02/11/2018 1:40 PM EDT Impressions 02/11/2018 1:42 PM EDT No findings suggestive of malignancy are seen. BI-RADS CATEGORY: 1 - Negative. DENSITY: There are scattered fibroglandular densities. POS - [id number] Narrative 02/11/2018 1:42 PM EDT Full-field digital mammography is obtained with computer-aided detection. Comparison with prior imaging from 05/02/2017 is made with older imaging dating back as far as 01/10/2007 also reviewed. There is scattered fibroglandular density evident in the breasts. In addition to 2-D C view imaging, tomosynthesis images are obtained in two projections of each breast. The previously evident density in the left breast is no longer visualized.. No dominant soft tissue mass of concern, suspicious cluster of calcifications, significant interval skin changes, or architectural distortion is identified. Procedure Note Fabrice Lawson MD - 02/11/2018 Full-field digital mammography is obtained with computer-aided detection.Comparison with prior imaging from 05/02/2017 is made with older imagingdating back as far as 01/10/2007 also reviewed. There is scattered fibroglandular density evident in the breasts. Inaddition to 2-D C view imaging, tomosynthesis images are obtained in twoprojections of each breast. The previously evident density in the left breast is no longervisualized.. No dominant soft tissue mass of concern, suspicious clusterof calcifications, significant interval skin changes, or architecturaldistortion is identified. IMPRESSION: No findings suggestive of malignancy are seen. BI-RADS CATEGORY: 1 - Negative. DENSITY: There are scattered fibroglandular densities. POS - [id number] Adarsh Parks MD IMG MG EXAMS Final Resu lt documented in this encounter Visit Diagnoses Diagnosis Breast screening Breast screening, unspecified Breast screening Breast screening, unspecified documented in this encounter Care Teams Electric Motor Repairman Relationship Specialty Start Date End Date Adarsh Parks MD [address] [place] [address], [address] [place] [address] [email or web address] PCP - General 04/25/17 Adarsh Parks MD [address] [place] [address], [address] [place] [address] [email or web address] Historical LMR Provider 04/28/17 10/11/19 Kanwal Gómez NP [address] [place] [address] 2_[place] [address] [email or web address] Historical LMR Provider 04/28/17 10/11/19 Coy Berry MD [address] [place] [address] [email or web address] Historical LMR Provider 04/28/17 0 Tia Belle MD [address] [place], [place] Historical LMR Provider 04/28/17 0 Tia Belle MD [address] [place], [place] Obstetrics and Gynecology 10/12/19 Adarsh Parks MD [address] [facility], [address] [place] [address] [email or web address] Insurance Assigned Provider 09/10/20 08/11/22 Adarsh Parks MD [address] [facility], [address] [place] [address] Insurance Assigned Provider 10/12/23 11/14/24 Adarsh Parks MD [address] [facility] [place] [address] [email or web address] Insurance Assigned Provider 01/16/25 documented as of this encounter Additional Source Comments The information contained in this document represents components of the legal health record. It is not the complete legal health record.[facility]
== END 2025-05-27 15:04 | disposition home or self-care (01) ==
LOC: HO.BBR 15:03
PROVIDERS: Visit Provider Internal Medicine Hematology
DX: Z13.89 Encounter for screening for other disorder (principal)